=== PATIENT | female | born 1955 | race American Indian/Alaskan Native ===

== ENCOUNTER 2020-04-13 12:12 | Outpatient (CLI) | payer OTHER ==
[2020-04-13 12:35] LABS: Hematocrit 40.1 % (30.3-42.9); Mean Corpuscular HGB Conc 35 % (30-34); Mean Corpuscular Volume 95 fl (79-97); Platelet Count 418 K/mm3 (140-440); Red Blood Count 4.22 M/mm3 (3.65-5.03); Red Cell Distribution Width 15.2 % (13.2-15.2)
[2020-04-13 13:46] LABS: Basophils % (Manual) 0 % (0.0-1.8); Eosinophils % (Manual) 0 % (0.0-4.3); Total Cells Counted 100
[2020-04-13 13:47] LABS: Platelet Estimate Consistent w Auto; RBC Morphology Normal
== END 2020-04-13 12:13 | disposition home or self-care (01) ==
LOC: LAB 12:12
PROVIDERS: ATTEND Internal Medicine
DX: I10 Essential (primary) hypertension (principal); H26.492 Other secondary cataract, left eye; H33.20 Serous retinal detachment, unspecified eye
CPT/HCPCS: 36415; 85007; 85025